=== PATIENT | male | born 1995 | race Hispanic/Latino ===

== ENCOUNTER 2020-12-10 21:00 | Emergency (ER) | payer OTHER ==
[~2020-12-10] VITALS: Ht 180.3 cm; Wt 88.0 kg
[2020-12-10 21:03] VITALS: BP 153/71
== END 2020-12-11 00:30 | disposition left against medical advice (07) ==
LOC: EDH 21:00
DX: R50.9 Fever, unspecified (principal); M79.10 Myalgia, unspecified site; Z53.21 Procedure and treatment not carried out due to patient leaving prior to being seen by health care provider